=== PATIENT | male | born 1995 | race Caucasian/White ===

== ENCOUNTER 2024-06-18 20:21 | Emergency (ER) | payer SELFPAY ==
[2024-06-18 20:48] VITALS: BP 147/81; PULSE 77; RESP 16; TEMP 36.4; O2SAT 97
--- NOTE | 2024-06-18 22:06 | ED.ABDPAIN ---
HPI - Abdominal Pain General Chief Complaint: Abdominal Pain Stated Complaint: abdominal pain Time Seen by Provider: 06/18/24 21:16 History of Present Illness HPI narrative: Patient is a 28-year-old male who presents to the emergency department this evening from urgent care due to concern for right lower quadrant tenderness and appendicitis. Patient states that he initially went to the urgent care complaining of flu-like symptoms and general malaise and on examination he was told that he was tender in the right lower quadrant and was prompted to come to the emergency department for further evaluation and to rule out an appendicitis. Patient states that he has been feeling generally fatigued but is denying any abdominal pain, any nausea, vomiting, dysuria or hematuria, constipation, diarrhea, melena, hematochezia, fevers or chills. He also denies any chest pain or shortness of breath. Patient states that he has a lost a lot a weight recently and admits that this is intentional. Related Data Allergies Allergy/AdvReac Type Severity Reaction Status Date / Time No Known Allergies Allergy Verified 06/18/24 20:22 Review of Systems Review of Systems: All systems are reviewed and are negative unless stated otherwise in the HPI. Exam Narrative: General: Alert, awake, afebrile, in no acute distress. HEENT: PERRL, no rhinorrhea, no post nasal drip, oropharynx clear. Cardiovascular: Regular rate and rhythm, no murmurs, rubs or gallops, no peripheral edema. Respiratory: Clear to auscultation bilaterally, no tachypnea, no wheezing, no rhonchi, no rubs, no respiratory distress. Abdomen: Soft, nontender, nondistended, no rebound, no guarding, no peritoneal signs. Musculoskeletal: No joint swelling or deformity, normal muscle tone. Skin: No rashes or petechia, no signs of infection. Neurological: Alert and oriented to person, place, and time. Follows all commands. No focal deficits, speech is clear and fluent. Course Vital Signs Vital signs: Vital Signs Temperature 97.6 F 06/18/24 20:48 Pulse Rate 77 06/18/24 20:48 Respiratory Rate 16 06/18/24 20:48 Blood Pressure 147/81 H 06/18/24 20:48 Pulse Oximetry 97 06/18/24 20:48 Oxygen Delivery Room Air 06/18/24 20:48 Temperature 97.9 F 06/18/24 23:06 Pulse Rate 74 06/18/24 23:06 Respiratory Rate 17 06/18/24 23:06 Blood Pressure 136/80 06/18/24 23:06 Pulse Oximetry 100 06/18/24 23:06 Oxygen Delivery Room Air 06/18/24 20:48 MDM - Abdominal Pain MDM Narrative Medical decision making narrative: The patient was evaluated by myself in the emergency department. History is obtained from patient who is an independent historian and physical exam was performed. External medical records were reviewed at this time. IV was established and pertinent tests were ordered. Laboratory results obtained revealing no acute process. Urinalysis unremarkable. At this time, shared medical decision-making with patient regarding obtaining a CT scan was discussed. I did inform the patient that my suspicion for appendicitis is very low given the fact that he does not have any abdominal pain and blood work and urinalysis are unremarkable. I did offer the patient a CT scan if he wanted 1, however, patient declined CT scan stating that he also does not feel it he needs it and does not want to the unnecessary test and cost associated with it. I did provide the patient with strict return precautions and instructed him to return to the emergency department if he develops any new or worsening symptoms including any periumbilical or right lower quadrant abdominal pain patient is agreeable with this plan. Differential diagnosis considerations include acute viral syndrome, dehydration, infectious process such as pneumonia/UTI. Comorbidities impacting this visit include none. I have evaluated and discussed social determinants of health with the patient that could potentiall
[2024-06-18 22:14] LABS: Basophils Absolute Auto 0.1 K/mm3 (0.0-0.1); Basophils Percent Auto 0.8 % (0.2-1.2); Eosinophils Absolute Auto 0.2 K/mm3 (0-0.3); Eosinophils Percent Auto 2.8 % (0-4.4); Hematocrit 42.8 % (42.0-52.0); Hemoglobin 15.3 g/dL (14.0-18.0); Immature Granulocyte Absolute 0.02 K/mm3 (0.00-0.031); Immature Granulocyte Percent A 0.3 % (0-0.5); Lymphocytes Absolute Auto 2.53 K/mm3 (0.9-3.2); Mean Corpuscular HGB Conc 35.7 g/dl (32-36); Mean Corpuscular Hemoglobin 31.7 pg (26-34); Mean Corpuscular Volume 88.6 fl (80-100); Mean Platelet Volume 9.6 fl (7.4-10.4); Monocytes Absolute Auto 0.8 K/mm3 (0.1-0.6); Monocytes Percent Auto 10.8 % (2.6-8.5); Neutrophils Absolute Auto 3.8 K/mm3 (1.3-6.7); Neutrophils Percent Auto 51.3 % (45.5-73.1); Platelet Count Result 316 k/mm3 (150-375); Red Blood Count 4.83 M/mm3 (4.6-6.20); Red Cell Distribution Width 12.6 % (11.5-14.5); White Blood Count 7.4 K/mm3 (4.5-10.0)
[2024-06-18 22:17] LABS: Add Urine Microscopic? YES; Appearance Urine Turbid (Clear); Bacteria Urine None Seen /hpf; Bilirubin Urine Negative (Negative); Blood Urine Negative (Negative); Color Urine Yellow (Yellow); Glucose Urine UA Negative (Negative); Ketones Urine Negative (Negative); Leukocyte Esterase Ur 1+ LEU/UL (Negative); Need Manual Microscopic Reviewed; Nitrate Urine Negative (Negative); Non Pathogenic Casts 0-2; Protein Urine 1+ mg/dL (Negative); RBC Urine 0-2 /hpf (0-2); Specific Grav Ur 1.025 (1.001-1.035); Squamous Epithelial Cell Urine None Seen /hpf (Few); WBC Urine 0-5 /hpf (0-3); pH Urine 8.5 (5.0-9.0)
[2024-06-18 22:20] LABS: Alanine Aminotransferase 28 U/L (6-50); Albumin Level 3.6 g/dL (3.5-5.1); Alkaline Phosphatase 50 U/L (38-126); Anion Gap 7 mmol/L (4-12); Aspartate Amino Transferase 20 U/L (17-59); Bilirubin,Total 0.4 mg/dL (0.2-1.3); Blood Urea Nitrogen 14 mg/dL (9-20); Calcium 8.5 mg/dL (8.4-10.2); Carbon Dioxide 28 mmol/L (22-30); Chloride 105 mmol/L (98-107); Estimated CRCL calculation 117 ml/min; Estimated Glomerular Filt Rate > 60; Glucose 104 mg/dL (65-110); Lipase 68 U/L (23-300); Magnesium 1.9 mg/dL (1.6-2.3); Potassium 3.8 mmol/L (3.4-5.0); Sodium 140 mmol/L (137-145)
[2024-06-18 22:46] LABS: Influenza A QL RT-PCR Negative (Negative); Influenza B QL RT-PCR Negative (Negative); SARS-CoV-2 RNA PCR Negative (Negative)
[2024-06-18 23:06] VITALS: BP 136/80; PULSE 74; RESP 17; TEMP 36.6; O2SAT 100
== END 2024-06-18 23:08 | disposition home or self-care (01) ==
PROVIDERS: Emergency Provider Emergency Medicine
DX: J11.89 Influenza due to unidentified influenza virus with other manifestations (principal); Z20.822 Contact with and (suspected) exposure to COVID-19
CPT/HCPCS: 36415; 80053; 81001; 83690; 83735; 85025; 87086; 87636; 99283